=== PATIENT | female | born 1985 | race Caucasian/White ===

== ENCOUNTER 2022-01-27 10:06 | Outpatient (CLI) | payer OTHER, SELFPAY | END 2022-01-27 10:07 | disposition home or self-care (01) | LOC: FRMREF 10:06 | PROVIDERS: PCP Family Medicine; Visit Provider Registered Nurse | DX: R10.2 Pelvic and perineal pain (principal); R14.0 Abdominal distension (gaseous) | CPT/HCPCS: 87086 ==

== ENCOUNTER 2022-01-28 10:12 | Outpatient (CLI) | payer OTHER, SELFPAY ==
--- NOTE | 2022-01-28 10:15 | CRLHL7_ITS ---
For Patients: As a result of the Century Cures Act, medical imaging exams and procedure reports are released immediately into your electronic medical record. You may view this report before your referring provider. If you have questions, please contact your health care provider. INDICATION: Abdominal distension COMPARISON: none TECHNIQUE: 2D connors scale and color Doppler images were acquired of the pelvis using a transabdominal and transvaginal approach. FINDINGS: Sonographic images demonstrate a normal size and smooth outer contour of the uterus. Uterus measures 9.3 cm in length by 4.8 cm in AP diameter by 5.3 cm in transverse dimension. The myometrium has a mildly heterogeneous echotexture. The endometrial lining appears normal and measures 6 mm in composite thickness. The right ovary measures 4.5 x 1.9 x 1.9 cm in size and the left ovary measures 3.6 x 1.7 x 2.6 cm. The ovaries demonstrate normal arterial and venous blood flow on color Doppler analysis. There are no suspicious fluid collections within the cul-de-sac. Trace physiologic free fluid. IMPRESSION: Normal pelvic ultrasound. Dictated by Christiano Anderson MD @ 01/28/2022 11:09:57 AM (Electronically Signed)
== END 2022-01-28 10:13 | disposition home or self-care (01) ==
LOC: US 10:13
PROVIDERS: PCP Family Medicine; Visit Provider Registered Nurse
DX: R14.0 Abdominal distension (gaseous) (principal)
CPT/HCPCS: 76830; 76856

== ENCOUNTER 2023-01-18 08:14 | Outpatient (CLI) | payer OTHER, SELFPAY | END 2023-01-18 08:15 | disposition home or self-care (01) | PROVIDERS: Visit Provider Emergency Medicine | DX: R68.89 Other general symptoms and signs (principal); M25.50 Pain in unspecified joint | CPT/HCPCS: 84443; 86618 ==

== ENCOUNTER 2023-01-20 09:04 | Outpatient (CLI) | payer OTHER, SELFPAY ==
--- NOTE | 2023-01-20 09:15 | CRLHL7_ITS ---
For Patients: As a result of the Century Cures Act, medical imaging exams and procedure reports are released immediately into your electronic medical record. You may view this report before your referring provider. If you have questions, please contact your health care provider. CLINICAL HISTORY: PELVIC PAIN TECHNIQUE: 2D connors scale ultrasound. In addition color Doppler and spectral Doppler analysis was performed of the pelvis using a transabdominal and transvaginal approach. FINDINGS: The myometrium has a normal uniform echotexture. The uterus measures 8.2 x 4.9 x 5.3 cm. The endometrial lining measures 9 mm in thickness. The right ovary measures 3.7 x 1.7 x 2.2 cm in size and the left ovary measures 3.7 x 2.5 x 3.0 cm. The ovaries demonstrate normal arterial and venous blood flow on color Doppler and spectral Doppler analysis. A complex left ovarian cyst is present measuring 2.5 x 2.5 x 2.3 cm. There are no suspicious fluid collections within the cul-de-sac. Trace physiologic free fluid noted. IMPRESSION: Hemorrhagic left ovarian cyst measuring 2.5 cm. No ovarian torsion. No uterine fibroid. Dictated by Christiano Anderson MD @ 01/20/2023 10:15:55 AM (Electronically Signed)
== END 2023-01-20 09:05 | disposition home or self-care (01) ==
LOC: US 09:06
PROVIDERS: PCP Emergency Medicine; Visit Provider Emergency Medicine
DX: R10.2 Pelvic and perineal pain (principal); N83.202 Unspecified ovarian cyst, left side
CPT/HCPCS: 76830; 76856; 93976

== ENCOUNTER 2023-07-18 18:09 | Outpatient (CLI) | payer OTHER, SELFPAY | END 2023-07-18 18:10 | disposition home or self-care (01) | PROVIDERS: PCP Emergency Medicine; Visit Provider Emergency Medicine | DX: R10.30 Lower abdominal pain, unspecified (principal) | CPT/HCPCS: 80053; 83690; 86140; 86258; 86364 ==

== ENCOUNTER 2024-06-20 11:42 | Outpatient (CLI) | payer OTHER, SELFPAY | END 2024-06-20 11:43 | disposition home or self-care (01) | PROVIDERS: PCP Emergency Medicine; Visit Provider Emergency Medicine | DX: Z13.228 Encounter for screening for other metabolic disorders (principal); Z13.220 Encounter for screening for lipoid disorders; Z13.29 Encounter for screening for other suspected endocrine disorder | CPT/HCPCS: 80053; 80061; 84443 ==

== ENCOUNTER 2024-09-16 12:43 | Outpatient (CLI) | payer OTHER, SELFPAY | END 2024-09-16 12:44 | disposition home or self-care (01) | LOC: LKVREF 12:45 | PROVIDERS: PCP Emergency Medicine; Visit Provider Family Medicine | DX: Z13.228 Encounter for screening for other metabolic disorders (principal) | CPT/HCPCS: 80048 ==